=== PATIENT | male | born 1930 | race Caucasian/White ===

== ENCOUNTER 2019-10-25 14:36 | Observation (INO) | payer MEDICARE, OTHER ==
--- NOTE | 2019-10-25 16:19 | EDM.PDOC ---
ED HPI GENERAL MEDICAL PROBLEM - General Chief Complaint: Genitourinary Problem Stated Complaint: URINE ISSUES Time Seen by Provider: 10/25/19 15:09 Source of Information: Reports: Patient History Limitations: Reports: No Limitations - History of Present Illness Onset: Gradual Duration: Day(s): (a few days) Location: Reports: Abdomen Severity: Mild bladder Pain Score (Numeric/FACES): 3 - Related Data Allergies Allergy/AdvReac Type Severity Reaction Status Date / Time No Known Allergies Allergy Verified 10/25/19 15:02 Past Medical History HEENT History: Reports: Hard of Hearing Cardiovascular History: Reports: Hypertension Other Genitourinary History: bladder cancer Oncologic (Cancer) History: Reports: Bladder - Infectious Disease History Infectious Disease History: Reports: Chicken Pox, Measles, Mumps Social & Family History - Family History Family Medical History: Noncontributory - Tobacco Use Smoking Status *Q: Never Smoker - Recreational Drug Use Recreational Drug Use: No ED ROS GENERAL - Review of Systems Review Of Systems: See Below Constitutional: Reports: No Symptoms HEENT: Reports: No Symptoms Respiratory: Reports: No Symptoms Cardiovascular: Reports: No Symptoms Endocrine: Reports: No Symptoms GI/Abdominal: Reports: Abdominal Pain (pubic discomfort) Musculoskeletal: Reports: No Symptoms Skin: Reports: No Symptoms Neurological: Reports: No Symptoms ED EXAM, RENAL/ - Physical Exam Exam: See Below Text/Narrative:: This 89 year old male is admitted to the ED with a chief complaint of painful urination, frequent urination and dribbling when he passes his urine. He states that he is not drinking enough fluids. He states that he had bladder cancer done two weeks ago. He denies any fever or chills. He denies any nausea or vomiting. NO chest pain or SOB. He states that he feels fine other than his urinary complaints. Exam Limited By: No Limitations General Appearance: Alert, WD/WN, No Apparent Distress Ears: Normal External Exam, Normal Canal, Hearing Grossly Normal, Normal TMs Nose: Normal Inspection, Normal Mucosa, No Blood Throat/Mouth: Normal Inspection, Normal Lips, Normal Teeth, Normal Gums, Normal Oropharynx, Normal Voice, No Airway Compromise Head: Atraumatic, Normocephalic Neck: Normal Inspection, Supple, Non-Tender, Full Range of Motion Respiratory/Chest: No Respiratory Distress, Lungs Clear, Normal Breath Sounds, No Accessory Muscle Use, Chest Non-Tender Cardiovascular: Normal Peripheral Pulses, Regular Rate, Rhythm, No Edema, No Gallop, No JVD, No Murmur, No Rub GI/Abdominal: Normal Bowel Sounds, Soft, Non-Tender, No Organomegaly, No Distention, No Abnormal Bruit (Male) Exam: No Hernia, Normal Inspection, Other (tenderness is noted over the pubic area) Rectal (Males) Exam: Deferred Back Exam: Normal Inspection Extremities: Non-Tender, Normal Capillary Refill Neurological: Alert, Oriented, CN II-XII Intact, Normal Reflexes Skin Exam: Warm, Dry, Intact, Normal Color, No Rash Lymphatic: No Adenopathy Course - Vital Signs Text/Narrative:: I discussed this case with Dr. Coon at 7:14PM the patient's history and lab studies. He will be admitted with a diagnosis of UTI, mild dehydration and history of bladder cancer. The patient agrees with the admission plan. Last Recorded V/S: Last Vital Signs Temp 98 F 10/25/19 15:03 Pulse 50 L 10/25/19 18:01 Resp 16 10/25/19 18:01 BP 170/70 H 10/25/19 18:01 Pulse Ox 96 10/25/19 18:01 - Orders/Labs/Meds Orders: Active Orders 24 hr Category Date Time Status Admission Status [Patient Status] [ADT] Stat ADT 10/25/19 19:19 Active Abdomen Pelvis wo Cont [CT] Stat Exams 10/25/19 19:14 Ordered UA W/TANIA RFLX IF INDICATED [URIN] Stat Lab 10/25/19 16:47 Ordered Sodium Chloride 0.9% [Normal Saline] 500 ml Med 10/25/19 16:30 Active IV .BOLUS Sodium Chloride 0.9% [Normal Saline] 500 ml Med 10/25/19 19:30 Active IV .BOLUS Medication Orders Sodium Chloride (Normal Saline) 500 mls @ 500 mls/hr IV .BOLUS KEY Last Admin: 10/25/19 17:00 Dose: 500 mls/hr Sodium Chloride (Normal Saline) 500 mls @ 250 mls/hr IV .BOLUS KEY Labs: Laboratory Tests 10/25/19 10/25/19 10/25/19 Range/Units 15:08 16:38 16:38 WBC 7.50 (4.0-11.0) K/uL RBC 4.36 L (4.50-5.90) M/uL Hgb 12.4 L (13.0-17.0) g/dL Hct 39.5 (38.0-50.0) % MCV 90.6 (80.0-98.0) fL MCH 28.4 (27.0-32.0) pg MCHC 31.4 (31.0-37.0) g/dL RDW Std Deviation 43.5 (28.0-62.0) fl RDW Coeff of Luis Enrique 13 (11.0-15.0) % Plt Count 256 (150-400) K/uL MPV 10.70 (7.40-12.00) fL Neut % (Auto) 52.6 (48.0-80.0) % Lymph % (Auto) 30.7 (16.0-40.0) % Boyle % (Auto) 11.5 (0.0-15.0) % Eos % (Auto) 4.9 (0.0-7.0) % Baso % (Auto) 0.3 (0.0-1.5) % Neut # (Auto) 4.0 (1.4-5.7) K/uL Lymph # (Auto) 2.3 (0.6-2.4) K/uL Boyle # (Auto) 0.9 H (0.0-0.8) K/uL Eos # (Auto) 0.4 (0.0-0.7) K/uL Baso # (Auto) 0.0 (0.0-0.1) K/uL Nucleated RBC % 0.0 /100WBC Nucleated RBCs # 0 K/uL Sodium 143 (136-148) mmol/L Potassium 4.1 (3.5-5.1) mmol/L Chloride 105 (98-107) mmol/L Carbon Dioxide 26.7 (21.0-32.0) mmol/L BUN 28 H (7.0-18.0) mg/dL Creatinine 1.6 H (0.8-1.3) mg/dL Est Cr Clr Drug Dosing 31.91 mL/min Estimated GFR (MDRD) 41.0 ml/min Glucose 99 (74-106) mg/dL Calcium 9.0 (8.5-10.1) mg/dL Total Bilirubin 0.4 (0.2-1.0) mg/dL AST 20 (15-37) IU/L ALT 23 (14-63) IU/L Alkaline Phosphatase 104 (46-116) U/L Total Protein 7.4 (6.4-8.2) g/dL Albumin 3.2 L (3.4-5.0) g/dL Globulin 4.2 H (2.6-4.0) g/dL Albumin/Globulin Ratio 0.8 L (0.9-1.6) Urine Color YELLOW Urine Appearance SLT CLOUDY Urine pH 6.0 (5.0-8.0) Ur Specific [place] 1.025 (1.001-1.035) Urine Protein TRACE H (NEGATIVE) mg/dL Urine Glucose (UA) NEGATIVE (NEGATIVE) mg/dL Urine Ketones NEGATIVE (NEGATIVE) mg/dL Urine Occult Blood LARGE H (NEGATIVE) Urine Nitrite POSITIVE H (NEGATIVE) Urine Bilirubin NEGATIVE (NEGATIVE) Urine Urobilinogen 0.2 (<2.0) EU/dL Ur Leukocyte Esterase LARGE H (NEGATIVE) Urine RBC 40-50 (0-2/HPF) Urine WBC TO NUMEROUS TO COUNT H (0-5/HPF) Ur Epithelial Cells RARE (NONE-FEW) Urine Bacteria 3+ H (NEGATIVE) Meds: Medications Generic Name Dose Route Start Last Admin Trade Name Freq PRN Reason Stop Dose Admin Sodium Chloride 500 mls @ 500 mls/hr 10/25/19 16:30 10/25/19 17:00 Normal Saline IV 500 mls/hr .BOLUS KEY Administration Sodium Chloride 500 mls @ 250 mls/hr 10/25/19 19:30 Normal Saline IV .BOLUS KEY Discontinued Medications Generic Name Dose Route Start Last Admin Trade Name Freq PRN Reason Stop Dose Admin Levofloxacin/Dextrose 750 mg/ 150 mls @ 100 mls/hr 10/25/19 16:21 10/25/19 17 :00 Premix IV 10/25/19 17:50 100 mls/hr ONETIME ONE Administration Departure - Departure Time of Disposition: 19:16 Disposition: Refer to Observation Condition: Fair Clinical Impression: UTI (urinary tract infection), bacterial, Dehydration, mild, History of bladder cancer - Discharge Information *PRESCRIPTION DRUG MONITORING PROGRAM REVIEWED*: Yes *COPY OF PRESCRIPTION DRUG MONITORING REPORT IN PATIENT MARIA: Yes Referrals: Anastasia Gallegos [employer] [Primary Care Provider] - Forms: ED Department Discharge Sepsis Event Note - Evaluation Sepsis Screening Result: No Definite Risk - Focused Exam Vital Signs: Vital Signs Temp Pulse Resp BP Pulse Ox 10/25/19 18:01 50 L 16 170/70 H 96 10/25/19 17:00 72 16 172/70 H 96 10/25/19 15:03 98 F 57 L 14 166/58 H 96 Date Exam was Performed: 10/25/19 Time Exam was Performed: 19:23 - My Orders Last 24 Hours: My Active Orders 10/25/19 16:30 Sodium Chloride 0.9% [Normal Saline] 500 ml IV .BOLUS 10/25/19 16:47 UA W/TANIA RFLX IF INDICATED [URIN] Stat 10/25/19 19:19 Admission Status [Patient Status] [ADT] Stat 10/25/19 19:30 Sodium Chloride 0.9% [Normal Saline] 500 ml IV .BOLUS - Assessment/Plan Last 24 Hours: My Active Orders 10/25/19 16:30 Sodium Chloride 0.9% [Normal Saline] 500 ml IV .BOLUS 10/25/19 16:47 UA W/TANIA RFLX IF INDICATED [URIN] Stat 10/25/19 19:19 Admission Status [Patient Status] [ADT] Stat 10/25/19 19:30 Sodium Chloride 0.9% [Normal Saline] 500 ml IV .BOLUS
[2019-10-25] MEDS ORDERED: Levofloxacin/Dextrose 5%-Water 750 MG in Premix Bag 1 BAG IV ONE (16:21)
[2019-10-25] MEDS ORDERED: Sodium Chloride 0.9% 500 ML IV SCH ×2 (16:30→19:30)
[2019-10-25 17:14] LABS: CARBON DIOXIDE,CO2 26.7 mmol/L (21.0-32.0); POTASSIUM,K 4.1 mmol/L (3.5-5.1)
--- NOTE | 2019-10-25 19:55 | CT ---
CT abdomen and pelvis Technique: Multiple axial sections were obtained from above the dome of the diaphragm inferiorly to the pubic symphysis. Intravenous and oral contrast was not utilized. Comparison: Prior CT abdomen and pelvis study of 09/06/19. Findings: Visualized lung bases show mild interstitial fibrosis and slight scarring. Adrenal glands show no nodule. Liver shows no focal abnormality. Spleen appears within normal limits. Gallbladder shows no calcified gallstones. Pancreas is within normal limits. Kidneys show no abnormal calcifications. No ureteral calculi are seen. Aorta and iliac vessels shows atherosclerotic calcification. 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 No pelvic mass or adenopathy is seen. Slight increased stool within the rectum is noted. Bladder shows asymmetric wall thickening along the left sided. Mild amount of air is noted within bladder wall as well as within the bladder lumen. Bone window settings were reviewed which shows scattered degenerative change within the spine. Hemangioma is noted within T11. No acute osseous finding is seen. Impression: 1. Asymmetric wall thickening to the left bladder. This may be residual tumor but previous bladder mass has significantly decreased in size. This could also represent thickening from postsurgical or post radiation change. Air is noted within the bladder wall presumably from previous treatment. Small amount of luminal air is seen within the bladder. 2. Other findings as noted above. 3. Nothing acute is seen. Diagnostic code #3 Study was dictated in MDT
[2019-10-25] MEDS ORDERED: Acetaminophen 325 MG Tab PO PRN (22:24)
[2019-10-25] MEDS ORDERED: cefTRIAXone 1 GM in Sodium Chloride 0.9% 50 ML IV SCH (22:30)
--- NOTE | 2019-10-25 22:30 | PCM.HP.2 ---
H&P History of Present Illness - General Date of Service: 10/25/19 Admit Problem/Dx: Admission Diagnosis/Problem Admission Diagnosis/Problem UTI, Urinary tract infectious disease - History of Present Illness Initial Comments - Free Text/Narative: 89 yo male with pmh of bladder cancer. PAtient reports a history of bladder tumor resection last month. He had a catheter removed ten days ago. For the past few days he reports pain on urination, frequenzy and drippling. He denies any fevers or gretchen blood in the urine. bladder Pain Score (Numeric/FACES): 3 - Related Data Allergies/Adverse Reactions: Allergies Allergy/AdvReac Type Severity Reaction Status Date / Time No Known Allergies Allergy Verified 10/26/19 07:47 Home Medications: Home Meds Aspirin [Adult Low Dose Aspirin EC] 81 mg PO DAILY 10/26/19 [History] Losartan Potassium 50 mg PO DAILY PRN 10/26/19 [History] levoFLOXacin [Levaquin] 750 mg PO Q48H #5 tab 10/26/19 [Rx] Past Medical History HEENT History: Reports: Hard of Hearing Cardiovascular History: Reports: Hypertension Other Genitourinary History: bladder cancer Oncologic (Cancer) History: Reports: Bladder - Infectious Disease History Infectious Disease History: Reports: Chicken Pox, Measles, Mumps Social & Family History - Family History Family Medical History: Noncontributory - Tobacco Use Smoking Status *Q: Former Smoker Used Tobacco, but Quit: Yes Month/Year Tobacco Last Used: 08/2006 Second Hand Smoke Exposure: No - Caffeine Use Caffeine Use: Reports: Coffee, Soda, Tea - Recreational Drug Use Recreational Drug Use: No H&P Review of Systems - Review of Systems: Review Of Systems: Comprehensive ROS is negative, except as noted in HPI. Exam - Exam Exam: See Below - Vital Signs Vital Signs: Last Vital Signs Temp 36.3 C 10/25/19 21:05 Pulse 63 10/25/19 21:05 Resp 18 10/25/19 21:05 BP 111/54 L 10/25/19 21:05 Pulse Ox 97 10/25/19 21:05 Weight: 83.915 kg - Exam General: Alert, Oriented HEENT: Mucosa Moist & [place] Neck: Supple, Trachea Midline Lungs: Clear to Auscultation, Normal Respiratory Effort Cardiovascular: Regular Rate, Regular Rhythm GI/Abdominal Exam: Normal Bowel Sounds, Soft, Non-Tender Extremities: Non-Tender, No Pedal Edema Skin: Warm, Dry, Intact Neurological: No: Focal Deficit - Patient Data Lab Results Last 24 hrs: Laboratory Results - last 24 hr 10/25/19 10/25/19 10/25/19 Range/Units 15:08 16:38 16:38 WBC 7.50 (4.0-11.0) K/uL RBC 4.36 L (4.50-5.90) M/uL Hgb 12.4 L (13.0-17.0) g/dL Hct 39.5 (38.0-50.0) % MCV 90.6 (80.0-98.0) fL MCH 28.4 (27.0-32.0) pg MCHC 31.4 (31.0-37.0) g/dL RDW Std Deviation 43.5 (28.0-62.0) fl RDW Coeff of Luis Enrique 13 (11.0-15.0) % Plt Count 256 (150-400) K/uL MPV 10.70 (7.40-12.00) fL Neut % (Auto) 52.6 (48.0-80.0) % Lymph % (Auto) 30.7 (16.0-40.0) % [place]kean % (Auto) 11.5 (0.0-15.0) % Eos % (Auto) 4.9 (0.0-7.0) % Baso % (Auto) 0.3 (0.0-1.5) % Neut # (Auto) 4.0 (1.4-5.7) K/uL Lymph # (Auto) 2.3 (0.6-2.4) K/uL Mckean # (Auto) 0.9 H (0.0-0.8) K/uL Eos # (Auto) 0.4 (0.0-0.7) K/uL Baso # (Auto) 0.0 (0.0-0.1) K/uL Nucleated RBC % 0.0 /100WBC Nucleated RBCs # 0 K/uL Sodium 143 (136-148) mmol/L Potassium 4.1 (3.5-5.1) mmol/L Chloride 105 (98-107) mmol/L Carbon Dioxide 26.7 (21.0-32.0) mmol/L BUN 28 H (7.0-18.0) mg/dL Creatinine 1.6 H (0.8-1.3) mg/dL Est Cr Clr Drug Dosing 31.91 mL/min Estimated GFR (MDRD) 41.0 ml/min Glucose 99 (74-106) mg/dL Calcium 9.0 (8.5-10.1) mg/dL Total Bilirubin 0.4 (0.2-1.0) mg/dL AST 20 (15-37) IU/L ALT 23 (14-63) IU/L Alkaline Phosphatase 104 (46-116) U/L Total Protein 7.4 (6.4-8.2) g/dL Albumin 3.2 L (3.4-5.0) g/dL Globulin 4.2 H (2.6-4.0) g/dL Albumin/Globulin Ratio 0.8 L (0.9-1.6) Urine Color YELLOW Urine Appearance SLT CLOUDY Urine pH 6.0 (5.0-8.0) Ur Specific [place] 1.025 (1.001-1.035) Urine Protein TRACE H (NEGATIVE) mg/dL Urine Glucose (UA) NEGATIVE (NEGATIVE) mg/dL Urine Ketones NEGATIVE (NEGATIVE) mg/dL Urine Occult Blood LARGE H (NEGATIVE) Urine Nitrite POSITIVE H (NEGATIVE) Urine Bilirubin NEGATIVE (NEGATIVE) Urine Urobilinogen 0.2 (<2.0) EU/dL Ur Leukocyte Esterase LARGE H (NEGATIVE) Urine RBC 40-50 (0-2/HPF) Urine WBC TO NUMEROUS TO COUNT H (0-5/HPF) Ur Epithelial Cells RARE (NONE-FEW) Urine Bacteria 3+ H (NEGATIVE) Result Diagrams: 10/26/19 06:07 10/26/19 06:07 Sepsis Event Note - Evaluation Sepsis Screening Result: No Definite Risk - Focused Exam Vital Signs: Vital Signs Temp Pulse Resp BP Pulse Ox 10/25/19 21:05 36.3 C 63 18 111/54 L 97 10/25/19 20:50 36.3 C 74 18 114/92 H 99 10/25/19 20:28 36.2 C 70 18 135/52 L 98 10/25/19 19:50 36.2 C 65 18 170/81 H 95 10/25/19 18:01 50 L 16 170/70 H 96 10/25/19 17:00 72 16 172/70 H 96 10/25/19 15:03 36.6 C 57 L 14 166/58 H 96 Date Exam was Performed: 10/26/19 Time Exam was Performed: 16:11 Problem List Initiated/Reviewed/Updated: Yes Orders Last 24hrs: Active Orders 24 hr Category Date Time Status Admission Status [Patient Status] [ADT] Stat ADT 10/25/19 19:19 Active Antiembolic Devices [RC] PER UNIT ROUTINE Care 10/25/19 22:25 Ordered Oxygen Therapy [RC] PRN Care 10/25/19 22:24 Ordered Up ad Hayley [RC] ASDIRECTED Care 10/25/19 22:24 Ordered VTE/DVT Education [RC] PER UNIT ROUTINE Care 10/25/19 22:24 Ordered Vital Signs [RC] Q4H Care 10/25/19 22:24 Ordered Regular Diet [DIET] Diet 10/25/19 Breakfast Ordered BASIC METABOLIC PANEL,BMP [CHEM] AM Lab 10/26/19 05:11 Ordered CBC WITH AUTO DIFF [HEME] AM Lab 10/26/19 05:11 Ordered CULTURE URINE [RM] Routine Lab 10/25/19 22:22 Ordered UA W/TANIA RFLX IF INDICATED [URIN] Stat Lab 10/25/19 16:47 Ordered Acetaminophen [Tylenol] Med 10/25/19 22:24 Ordered 650 mg PO Q4H PRN Sodium Chloride 0.9% [Normal Saline] 500 ml Med 10/25/19 16:30 Active IV .BOLUS Sodium Chloride 0.9% [Normal Saline] 500 ml Med 10/25/19 19:30 Active IV .BOLUS cefTRIAXone [Rocephin] 1 gm Med 10/25/19 22:30 Ordered Sodium Chloride 0.9% [Normal Saline] 50 ml IV Q24H Sequential Compression Device [OM.PC] Per Unit Routine Oth 10/25/19 22:24 Ordered Resuscitation Status Routine Resus Stat 10/25/19 22:24 Ordered Medication Orders Acetaminophen (Tylenol) 650 mg PO Q4H PRN PRN Reason: Pain (Mild 1-3)/fever Sodium Chloride (Normal Saline) 500 mls @ 500 mls/hr IV .BOLUS KEY Last Admin: 10/25/19 17:00 Dose: 500 mls/hr Sodium Chloride (Normal Saline) 500 mls @ 250 mls/hr IV .BOLUS [facility] Last Admin: 10/25/19 20:29 Dose: 250 mls/hr Ceftriaxone Sodium 1 gm/ (Sodium Chloride) 50 mls @ 100 mls/hr IV Q24H [facility] Assessment/Plan Comment:: 89 yo male admitted for UTI. Patient given a dose of Rocephin and monitored overnight with no events. We will discharge home on oral Levaquin to have follow up at [facility].
[2019-10-26 07:08] LABS: POTASSIUM,K 4.3 mmol/L (3.5-5.1)
== END 2019-10-26 10:30 | disposition home or self-care (01) ==
LOC: MW.ED 14:36 → UNDOADMOB 19:19 → MW.MS 19:19
PROVIDERS: ADMIT Internal Medicine; ATTEND Internal Medicine
DX: N39.0 Urinary tract infection, site not specified (principal); B96.89 Other specified bacterial agents as the cause of diseases classified elsewhere; I10 Essential (primary) hypertension; E86.0 Dehydration; Z87.891 Personal history of nicotine dependence; Z85.51 Personal history of malignant neoplasm of bladder; Z79.82 Long term (current) use of aspirin; Z79.899 Other long term (current) drug therapy
CPT/HCPCS: 36415; 74176; 80048; 80053; 81001; 85025; 87086; 87088; 87186; 96361; 96365; 99284; J0696; J1956; J7040; J7050; 96375; G0378